=== PATIENT | female | born 1995 | race Two or more races ===

== ENCOUNTER 2024-05-01 17:58 | Emergency (ER) | payer SELFPAY ==
[~2024-05-01] VITALS: Ht 170.2 cm; Wt 68.8 kg
--- NOTE | 2024-05-01 19:45 | ED.PDOC ---
Eye-HPI HPI Comments C/O SWELLING, REDNESS AND BURINING TO BILATERAL PERIORBITAL REGION X 4 DAYS. DENIES NEW MAKE UP, LOTION, OR FOODS. PATIENT DOES REPORT SAME THING HAPPENED OVER THE PAST 2 SEASONS SHE NOTES HOWEVER THIS IS THE WORST IT HAS GOTTEN. 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 SHE NOTES POSSIBLY RELATED TO A CERTAIN BREAD. DENIES CHEST PAIN, DIFFICULTY BREATHING, SHORTNESS OF BREATH, THROAT SWELLING, DIFFICULTY SWALLOWING, NAUSEA, VOMITING, FEVER CHILLS NO VISION CHANGES Chief Complaint: Eye Problem Time Seen by MD: 18:09 Reviewed Notes: Nurses Notes, Medications, Allergies Allergies: Coded Allergies: NO KNOWN ALLERGIES (Unverified , 05/01/24) Information Source: Patient Mode of Arrival: Ambulatory Past Medical History PAST MEDICAL HISTORY: Denies Surgical History: Denies all surgeries TENNIS DIRECTOR History: No Pertinent TENNIS DIRECTOR History Family History Family History: Reviewed,noncontributory to illness Social History Smoker: Non-Smoker Alcohol: Denies ETOH Use Drugs: Denies Drug Use Constitutional: denies: chills, diaphoresis, fatigue, fever, malaise, sweats, weakness, others EENTM: reports: eye pain, eye redness, others (BILATERAL EYE SWELLING AND DRAINAGE); denies: blurred vision, double vision, ear bleeding, ear discharge, ear drainage, ear pain, ear ringing, hearing loss, mouth pain, mouth swelling, nasal discharge, nose bleeding, nose congestion, nose pain, photophobia, tearing, throat pain, throat swelling, voice changes Respiratory: denies: cough, hemoptysis, orthopnea, SOB at rest, shortness of breath, SOB with excertion, stridor, wheezing, others Cardiovascular: denies: chest pain, dizzy spells, diaphoresis, Dyspnea on exertion, edema, irregular heart beat, left arm pain, lightheadedness, palpitations, PND, syncope, others Gastrointestinal: denies: abdomen distended, abdominal pain, blood streaked bowels, constipated, diarrhea, dysphagia, difficulty swallowing, hematemesis, melena, nausea, poor appetite, poor fluid intake, rectal bleeding, rectal pain, vomiting, others Genitourinary: denies: abnormal vagina bleeding, burning, dyspareunia, dysuria, flank pain, frequency, hematuria, incontinence, pain, , vagina discharge, urgency, others Neurological: denies: dizziness, fainting, headache, left sided numbness, left sided weakness, numbness, paresthesia, pre-existing deficit, right sided numbness, right sided weakness, seizure, speech problems, tingling, tremors, weakness, others Musculoskeletal: denies: back pain, gout, joint pain, joint swelling, muscle pain, muscle stiffness, neck pain, others Integumetry: denies: bruises, change in color, change in hair/nails, dryness, laceration, lesions, lumps, rash, wounds, others Allergic/Immunocompromised: denies: Difficulty Healing, Frequent Infections, Hives, Itching, others Endocrine: denies: excessive hunger, excessive sweating, excessive thirst, excessive urination, flushing, intolerance to cold, intolerance to heat, unexplained weight gain, unexplained weight loss, others Psychiatric: denies: anxiety, bipolar disorder, depression, hopeless, panic disorder, schizophrenia, sleepless, suicidal, others Physical Exam General Appearance: No Apparent Distress, Normal HEENT: Pharynx Normal, TMs Normal, Other (MODERATE BILATERAL EYE SWELLING LOWER LID AND UPPER LID WITH NOTED CLEAR DRAINAGE SCLERA HYPEREMIA. 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 Was a procedure done?: No EENT DIFF Eye: Conjunctivitis, Allergic, Foreign Body-Conjunctiva, Foreign Body-Corneal, Foreign Body-Intraocular, Foreign Body-Lid, Hordeolum (stye), Iritis/Uveitis, Orbital Cellulits, Periorbital Cellulits X-Ray, Labs, Meds, VS Vital Signs Date Time Temp Pulse Resp B/P (MAP) Pulse Ox O2 Delivery O2 Flow Rate FiO2 05/01/24 19:46 99.1 71 19 127/69 (88) 99 99.1 05/01/24 19:46 71 19 99 Room Air 05/01/24 18:15 98.0 84 20 131/86 (101) 99 X-Ray, Labs, Meds, VS Comment PATIENT TREATED WITH SOLU-MEDROL 40 MG IM, BENADRYL 25 MG IM, AND PEPCID 40 MG P.O. REPORTS IMPROVEMENT IN SYMPTOMS REQUESTING DISCHARGE AT THE TIME. PATIENT'S WE WILL NOT BE DRIVING HOME HAS BEEN MOTHER CURRENTLY DRIVING. SCRIPT AURELIO, ALLERGIC EYEDROPS, AND PEPCID. ADVISED TO FOLLOW UP WITH THE PCP IN 1- 2 DAYS CONSIDER ALLERGEN TESTING FOR CONTINUED SYMPTOMS. MEDICATIONS PRESCRIBED SIDE EFFECTS DISCUSSED ADVISED TO REST INCREASE P.O. FLUIDS WITH ELECTROLYTES, ER RETURN PRECAUTIONS GIVEN PATIENT INDICATES UNDERSTANDING AGREES WITH DISCHARGE PLAN OF CARE Time of 1ST Reevaluation: 20:08 Reevaluation 1ST: Improved Patient Education/Counseling: Diagnosis, Treatment, Prognosis, Need For Follow Up Family Education/Counseling: No Family Present Departure 1 Departure Time of Disposition: 20:08 Impression: Primary Impression: Allergic eye reaction Disposition: 01 HOME / SELF CARE / HOMELESS Condition: Stable e-Prescriptions Famotidine (Pepcid AC) 20 Mg Tab 1 TAB PO BID for 5 Days, #10 TAB Prov: JUANCARLOS MEJIA 05/01/24 Ketotifen Fumarate (Ophth) ([place]) 0.035 % Fernando 1 DROP OP BID for 7 Days, #1 ML Prov: JUANCARLOS MEJIA 05/01/24 Fexofenadine Hydrochloride (AURELIO ALLERGY) 180 Mg Tab 1 TAB PO DAILY for 14 Days, #14 TAB Prov: JUANCARLOS MEJIA 05/01/24 Discharged With: Self Critical Care Note Critical Care Time?: No Stability Stability form required: JUANCARLOS Stern May 01, 2024 19:45
[2024-05-01 19:46] VITALS: BP 127/69; PULSE 71; RESP 19; TEMP 99.1; O2SAT 99
[2024-05-01] MEDS: FAMOTIDINE 20 MG TAB PO ONE (19:56)
[2024-05-01] MEDS: diphenhdrAMINE HCL 50 MG/1 ML VL IM ONE (19:56)
[2024-05-01] MEDS: methylPREDNISolone SOD SUCC 40 MG/ML VL IM ONE (19:57)
[2024-05-01] MEDS ORDERED: FEXO-42 PO (20:08)
[2024-05-01] MEDS ORDERED: FAMO-161 PO (20:08)
[2024-05-01] MEDS ORDERED: KETO0.025 OP (20:08)
== END 2024-05-01 20:53 | disposition home or self-care (01) ==
LOC: ER 17:58
DX: T78.49XA Other allergy, initial encounter (principal); X58.XXXA Exposure to other specified factors, initial encounter
CPT/HCPCS: 96372; 99284; J1200; J2919